=== PATIENT | female | born 1960 | race Caucasian/White ===

== ENCOUNTER → 2017-09-24 | Outpatient (CLI) | payer OTHER ==
[~2017-09-24] MED LIST: CENTRUM SILVER1 EAC4 PO; GALZIN50 MG PO; HYDROCODONE-APA1 TA1 PO; MACROBID 100 M100 M2 PO; MIRALAX255 GM PO; NOHOMEMEDICATIONS; PRILOSEC40 MG PO; PYRIDIUM200 MG PO; TACLONEX 0.005%60 GM TOP; TYLENOL325 MG PO; WELLBUTRIN XL150 MG PO; XANAX 0.25 MG0.25 MG PO
== END ==
LOC: M.ULTRA 14:49
DX: Z40.01 Encounter for prophylactic removal of breast (principal); C50.911 Malignant neoplasm of unspecified site of right female breast; M79.601 Pain in right arm

== ENCOUNTER → 2018-10-05 | Outpatient (CLI) | payer OTHER | LOC: M.ULTRA 08:50 | DX: C50.919 Malignant neoplasm of unspecified site of unspecified female breast (principal); M19.90 Unspecified osteoarthritis, unspecified site; L40.8 Other psoriasis; K21.9 Gastro-esophageal reflux disease without esophagitis; Z79.899 Other long term (current) drug therapy; Z88.2 Allergy status to sulfonamides ==

== ENCOUNTER 2019-03-18 09:29 | Emergency (ER) | payer OTHER ==
[~2019-03-18] VITALS: Ht 162.6 cm; Wt 67.6 kg
[2019-03-18] MEDS ORDERED: NEURONTIN 300M300 M2 PO (09:45)
[2019-03-18 09:48] LABS: URINE BILIRUBIN NEGATIVE (Negative); URINE BLOOD 1+ (Negative); URINE CLARITY CLEAR; URINE COLOR YELLOW; URINE GLUCOSE-RANDOM NEGATIVE (Negative); URINE KETONES NEGATIVE (Negative); URINE LEUKOCYTES-REFLEX NEGATIVE (Negative); URINE NITRITE-REFLEX NEGATIVE (Negative); URINE PROTEIN NEGATIVE (Negative); URINE SPECIFIC GRAVITY <= 1.005 (1.005-1.030); URINE UROBILINOGEN 0.2 E.U./dl (0.2-1.0)
[2019-03-18 09:54] LABS: HEMATOCRIT 41.6 % (37.0-47.0); HEMOGLOBIN 14.3 gm/dL (12.0-15.0); MCH 33.5 pg (26.0-34.0); MCHC 34.4 g/dL (28.0-37.0); MCV 97.3 fL (80.0-100.0); MPV 8.1 fl. (7.2-11.1); NUCLEATED RBCS 0 /100WBC; PLATELET COUNT* 184 thou/uL (150-400); RBC 4.27 mil/uL (4.20-5.00); RDW-CV 13.4 % (10.5-14.5); WBC 6.1 thou/uL (4.0-11.0)
[2019-03-18 09:58] LABS: BACTERIA-REFLEX None Seen /HPF (None Seen); CASTS None Seen /LPF (None Seen); CRYSTALS None Seen /LPF (None Seen); MUCUS None Seen strn/LPF (None Seen); SQUAMOUS 0-3 Few /LPF (0-3); URINE RBC 0-2 Rare /HPF (0-2); URINE WBC-REFLEX None Seen /HPF (0-5)
[2019-03-18 10:17] LABS: ALBUMIN 3.9 g/dL (3.4-5.0); CALCIUM 8.9 mg/dL (8.5-10.1); POTASSIUM 3.7 mmol/L (3.5-5.1); TOTAL BILIRUBIN 0.5 mg/dL (<0.1-1.0)
[2019-03-18 10:57] LABS: ABSOLUTE EOSINOPHILS 0.1 thou/uL (0.0-0.7); ABSOLUTE MONOCYTES 0.4 thou/uL (0.0-1.2); ABSOLUTE NEUTROPHILS 3.5 thou/uL (1.6-8.1); ATYPICAL LYMPHS 4 %; PLATELET ESTIMATE ADEQUATE
[2019-03-18 10:58] LABS: OVALOCYTES Occasional
[2019-03-18 12:13] VITALS: BP 108/60
--- NOTE | 2019-03-18 16:04 | EKG ---
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
== END 2019-03-18 12:14 | disposition home or self-care (01) ==
LOC: M.ERS 09:29
PROVIDERS: Family Medicine
DX: R10.31 Right lower quadrant pain (principal); R19.7 Diarrhea, unspecified; M81.0 Age-related osteoporosis without current pathological fracture; F17.200 Nicotine dependence, unspecified, uncomplicated; Z90.13 Acquired absence of bilateral breasts and nipples; Z85.3 Personal history of malignant neoplasm of breast; Z86.018 Personal history of other benign neoplasm; Z90.49 Acquired absence of other specified parts of digestive tract; Z88.0 Allergy status to penicillin